=== PATIENT | female | born 1940 | race Caucasian/White ===

== ENCOUNTER 2016-08-27 15:45 | Emergency (ER) | payer MEDICARE, OTHER ==
[2016-08-27] MEDS ORDERED: IBUPROFEN 600 MG TABLET PO ONE (18:19)
[2016-08-27] MEDS ORDERED: LOSARTAN POTASSIUM 50 MG TABLET PO ONE (18:20)
[2016-08-27] MEDS ORDERED: HYDROCHLOROTHIAZIDE 50 MG TABLET PO ONE (18:20)
[2016-08-27] MEDS ORDERED: CLONIDINE HCL 0.2 MG TABLET PO ONE (18:20)
--- NOTE | 2016-08-27 18:55 | ER Document Report ---
ED Fall - General Chief Complaint: Fall Stated Complaint: FALL/FLANK PAIN Time Seen by Provider: 08/27/16 18:03 Notes: The patient is a 76-year-old female, past medical history hypertension, diabetes , presents with left lateral chest wall pain after she tripped over kittens yesterday and landed on her left chest wall. She is not taking anything to help with the pain and has not taken her blood pressure medications today. She denies LOC, numbness, tingling, shortness of breath, fevers, headache, neck pain or ataxia. TRAVEL OUTSIDE OF THE [place] IN LAST 30 DAYS: No - Related data Allergies/Adverse Reactions: No Known Allergies Allergy (Verified 08/27/16 15:52) Past Medical History - General Information source: Patient - Social History Smoking Status: Former Smoker Chew tobacco use (# tins/day): No Frequency of alcohol use: None Drug Abuse: None Family History: Reviewed & Not Pertinent Patient has suicidal ideation: No Patient has homicidal ideation: No - Past Medical History Cardiac Medical History: Reports: Hx Hypertension - EXFORGE, HCTZ, METOPROLOL, CLONIDINE Denies: Hx Coronary Artery Disease, Hx Heart Attack Pulmonary Medical History: Denies: Hx Asthma, Hx Bronchitis, Hx COPD, Hx Pneumonia Neurological Medical History: Denies: Hx Cerebrovascular Accident, Hx Seizures Renal/ Medical History: Denies: Hx Peritoneal Dialysis GI Medical History: Reports: Hx Ulcer - 1968. Denies: Hx Hepatitis, Hx Hiatal Hernia Musculoskeltal Medical History: Reports Hx Arthritis Infectious Medical History: Denies: Hx Hepatitis Past Surgical History: Reports: Hx Genitourinary Surgery - bladder tack, Hx Hysterectomy. Denies: Hx Mastectomy, Hx Open Heart Surgery, Hx Pacemaker - Immunizations Hx Diphtheria, Pertussis, Tetanus Vaccination: No - unk Review of Systems - Review of Systems Notes: REVIEW OF SYSTEMS: CONSTITUTIONAL: -fevers, -chills EENT: -eye pain, -difficulty swallowing, -nasal congestion CARDIOVASCULAR: +chest wall pain, -syncope. RESPIRATORY: -cough, -SOB GASTROINTESTINAL: -abdominal pain, -nausea, -vomiting, -diarrhea GENITOURINARY: -dysuria, -hematuria MUSCULOSKELETAL: -back pain, -neck pain SKIN: -rash or skin lesions. HEMATOLOGIC: -easy bruising or bleeding. LYMPHATIC: -swollen, enlarged glands. NEUROLOGICAL: -altered mental status or loss of consciousness, -headache, - neurologic symptoms PSYCHIATRIC: -anxiety, -depression. ALL OTHER SYSTEMS REVIEWED AND NEGATIVE. Physical Exam - Vital signs Vitals: Temp Pulse Resp BP Pulse Ox 99.1 F 73 18 210/93 H 96 08/27/16 15:52 08/27/16 15:52 08/27/16 15:52 08/27/16 15:52 08/27/16 15:52 - Notes Notes: PHYSICAL EXAMINATION: GENERAL: Well-appearing, well-nourished and in no acute distress. HEAD: Atraumatic, normocephalic. EYES: Pupils equal round and reactive to light, extraocular movements intact, sclera anicteric, conjunctiva are normal. ENT: nares patent, oropharynx clear without exudates. Moist mucous membranes. NECK: Normal range of motion, supple without lymphadenopathy LUNGS: Breath sounds clear to auscultation bilaterally and equal. No wheezes rales or rhonchi. HEART: Tenderness over left lateral chest wall. Regular rate and rhythm without murmurs ABDOMEN: Soft, nontender, normoactive bowel sounds. No guarding, no rebound. No masses appreciated. EXTREMITIES: Normal range of motion, no pitting or edema. No cyanosis. NEUROLOGICAL: Cranial nerves grossly intact. Normal speech, normal gait. Normal sensory and motor exams. PSYCH: Normal mood, normal affect. SKIN: Warm, Dry, normal turgor, no rashes or lesions noted. Course - Re-evaluation Re-evalutation: Patient has no rib fractures or pneumothorax on x-ray. She did not hit her head and has no midline back pain. Will treat her for rib contusions with anti- inflammatories. Patient also provided with a dose of her home blood pressure medication. Suspect her high blood pressure is from rebound hypertension from missing her clonidine dose this morning. He is otherwise asymptomatic at this time. Instructed her to follow-up with her primary care physician for further evaluation and treatment and possible blood pressure medication adjustment. - Vital Signs Vital signs: Temp Pulse Resp BP Pulse Ox 99.1 F 73 16 220/100 H 96 08/27/16 15:52 08/27/16 15:52 08/27/16 18:14 08/27/16 18:09 08/27/16 18:10 - Diagnostic Test Radiology reviewed: Image reviewed, Reports reviewed Radiology results interpreted by me: Rib series: No displaced rib fractures or PTX. Discharge - Discharge Clinical Impression: Contusion of rib on left side Qualifiers: Encounter type: initial encounter Qualified Code(s): S20.212A - Contusion of left front wall of thorax, initial encounter Hypertension Qualifiers: Hypertension type: unspecified secondary hypertension Qualified Code(s): I15.9 - Secondary hypertension, unspecified; I15 - Secondary hypertension Condition: Stable Disposition: HOME, SELF-CARE Additional Instructions: Contusion Your injury has resulted in a contusion -- a crushing of the deep tissues. No injury to important structures was detected during the physician's exam. Contusions vary in the amount of pain they cause, and in the length of time required for healing. Typically, the area will become bruised, and will remain painful to touch for two or three weeks. However, most patients are back to working and playing within a few days. After the initial period of rest and cold-packs, your symptoms (together with the doctor's recommendations) will determine how rapidly you can get back to full activity. Usually this means "do what feels okay, but don't do things that hurt." If re-examination was recommended, it's important to follow up as instructed. Call the doctor or return any time if pain increases, if swelling becomes severe, if you develop numbness or weakness in an injured extremity, or if any other alarming symptoms occur.
--- NOTE | 2016-08-27 19:20 | RADIOLOGY REPORT (SQ) ---
EXAM DESCRIPTION: RIBS LEFT W/PA CHEST COMPLETED DATE/TIME: 08/27/2016 7:05 pm REASON FOR STUDY: left chest wall injury s/p fall COMPARISON: 07/25/2013 TECHNIQUE: Frontal view of the chest and additional views of the left ribs acquired. NUMBER OF VIEWS: 3 LIMITATIONS: None. FINDINGS: FRONTAL CXR: No pneumothorax. No pleural effusion. No atelectasis or infiltrates. Stabl e cardiac silhouette. RIBS: No displaced rib fractures. No lytic or blastic bony lesions. OTHER: No other significant finding. IMPRESSION: NO PNEUMOTHORAX. NO DISPLACED RIB FRACTURES. COMMENT: SITE OF TRAUMA/COMPLAINT MARKED/STAMP COMPLETED: Yes TECHNICAL DOCUMENTATION: JOB ID: [id number] [employer]- All Rights Reserved
[2016-08-27] MEDS ORDERED: ACETAMINOPHEN WITH CODEINE #3 TABLET PO ONE (20:18)
[2016-08-27 20:59] VITALS: BP 112/72
== END 2016-08-27 20:59 | disposition home or self-care (01) ==
LOC: ER 15:45
DX: S20.212A Contusion of left front wall of thorax, initial encounter (principal); I15.9 Secondary hypertension, unspecified; E11.9 Type 2 diabetes mellitus without complications; R07.89 Other chest pain; Z87.891 Personal history of nicotine dependence; X58.XXXA Exposure to other specified factors, initial encounter
CPT/HCPCS: 99284; 71101; A9270 ×4; J3490

== ENCOUNTER 2017-06-07 20:17 | Emergency (ER) | payer MEDICARE, OTHER ==
[2017-06-07 21:27] LABS: HEMATOCRIT 43.5 % (36.0-47.0); HEMOGLOBIN 13.3 g/dL (12.0-15.5); MEAN CORPUSCULAR HEMOGLOBIN 23.6 pg (27.0-33.4); MEAN CORPUSCULAR HGB CONC 30.6 g/dL (32.0-36.0); MEAN CORPUSCULAR VOLUME 77 fl (80-97); RED BLOOD COUNT 5.64 10^6/uL (3.72-5.28); RED CELL DISTRIBUTION WIDTH 21.9 % (11.5-14.0); WHITE BLOOD COUNT 9.5 10^3/uL (4.0-10.5)
--- NOTE | 2017-06-07 21:33 | RADIOLOGY REPORT (SQ) ---
EXAM DESCRIPTION: CT HEAD WITHOUT COMPLETED DATE/TIME: 06/07/2017 9:23 pm REASON FOR STUDY: STROKE ALERT COMPARISON: 12/19/2010. TECHNIQUE: Axial images acquired through the brain without intravenous contrast. Images reviewed wi th bone, brain and subdural windows. Additional sagittal and coronal reconstructions were generated. Images stored on PACS. All CT scanners at this facility use dose modulation, iterative reconstruction, and/or weight based d osing when appropriate to reduce radiation dose to as low as reasonably achievable (ALARA). [facility]: Dose Right [facility]: CareDose [facility]: Dose Right [facility]: Teradose 4D [facility]: Smart [employer] RADIATION DOSE: CT Rad equipment meets quality standard of care and radiation dose reduction techniq ues were employed. CTDIvol: 53.2 mGy. DLP: 858 mGy-cm.mGy. LIMITATIONS: Motion artifact. FINDINGS: VENTRICLES: Prominent. CEREBRUM: No masses. No hemorrhage. No midline shift. Areas of low density in the white matter mos t likely due to chronic micro-vascular ischemic change. No evidence for acute infarction. CEREBELLUM: No masses. No hemorrhage. No alteration of density. No evidence for acute infarction. EXTRAAXIAL SPACES: Age-related involutional change. No fluid collections. No masses. ORBITS AND GLOBE: No intra- or extraconal masses. Normal contour of globe without masses. CALVARIUM: No fracture. PARANASAL SINUSES: No fluid or mucosal thickening. SOFT TISSUES: No mass or hematoma. OTHER: No other significant finding. IMPRESSION: CHRONIC CHANGES OF ATROPHY AND MICROVASCULAR ISCHEMIA. NO ACUTE PROCESS. EVIDENCE OF ACUTE STROKE: NO. COMMENT: Pertinent positive or negative findings of the imaging study reported as a CRITICAL EXAM dionicio LAI MD at21:27 on 06/07/2017. Category of Critical Exam: Stroke protocol. TECHNICAL DOCUMENTATION: JOB ID: [id number] Quality ID # [id number]: Final reports with documentation of one or more dose reduction techniques (e.g., Au tomated exposure control, adjustment of the mA and/or kV according to patient size, use of iterative reconstruction technique) 2010 [employer]- All Rights Reserved Reading location - IP/workstation name: [email or web address]
--- NOTE | 2017-06-07 21:37 | RADIOLOGY REPORT (SQ) ---
EXAM DESCRIPTION: CHEST SINGLE VIEW COMPLETED DATE/TIME: 06/07/2017 9:29 pm REASON FOR STUDY: SOB COMPARISON: 12/19/2010. NUMBER OF VIEWS: One view. TECHNIQUE: Single frontal radiographic view of the chest acquired. LIMITATIONS: None. FINDINGS: LUNGS AND PLEURA: No opacities, masses or pneumothorax. Right pleural effusion. MEDIASTINUM AND HILAR STRUCTURES: No masses. Contour normal. HEART AND VASCULAR STRUCTURES: Heart enlarged without failure. Normal vasculature. BONES: No acute findings. HARDWARE: None in the chest. OTHER: No other significant finding. IMPRESSION: HEART ENLARGED WITHOUT FAILURE. RIGHT PLEURAL EFFUSION. NO OTHER SIGNIFICANT FINDINGS. TECHNICAL DOCUMENTATION: JOB ID: [id number] [employer]- All Rights Reserved Reading location - IP/workstation name: [email or web address]
[2017-06-07 21:39] LABS: ALANINE AMINOTRANSFERASE 137 U/L (9-52); ALBUMIN 3.6 g/dL (3.5-5.0); ALKALINE PHOSPHATASE 101 U/L (38-126); ASPARTATE AMINO TRANSFERASE 227 U/L (14-36); BILIRUBIN,DIRECT 3.6 mg/dL (0.0-0.4); BILIRUBIN,TOTAL 4.6 mg/dL (0.2-1.3); BLOOD UREA NITROGEN 66 mg/dL (7-20); CALCIUM 8.9 mg/dL (8.4-10.2); CREATINE KINASE 404 U/L (30-135); GLUCOSE 107 mg/dL (75-110); POTASSIUM 4.5 mmol/L (3.6-5.0); TOTAL PROTEIN 6.6 g/dL (6.3-8.2)
[2017-06-07] MEDS ORDERED: DEXTROSE 50%-WATER 25 GM/50 ML DISP.SYRIN IV ONE ×2 (21:42→21:45)
[2017-06-07 21:45] LABS: ANION GAP 26 (5-19); CARBON DIOXIDE 18 mmol/L (22-30); CHLORIDE 94 mmol/L (98-107)
[2017-06-07 21:51] LABS: CREATINE KINASE MB 10.9 ng/mL (<4.55)
[2017-06-07 21:55] LABS: TROPONIN I 0.432 ng/mL
[2017-06-07 22:02] LABS: ABSOLUTE LYMPHOCYTES# (MANUAL) 0.3 10^3/uL (0.5-4.7); ABSOLUTE MONOCYTES # (MANUAL) 0.4 10^3/uL (0.1-1.4); ABSOLUTE NEUTROPHILS# (MANUAL) 8.8 10^3/uL (1.7-8.2); BASOPHILS % (MANUAL) 0 % (0-2); EOSINOPHILS % (MANUAL) 0 % (0-6); HOWELL-JOLLY BODIES PRESENT; LYMPHOCYTES % (MANUAL) 3 % (13-45); MONOCYTES % (MANUAL) 4 % (3-13); PLATELET LARGE PRESENT; SEGMENTED NEUTROPHILS % (MAN) 93 % (42-78); TOTAL CELLS COUNTED 100; TOXIC VACUOLATION PRESENT
[2017-06-07 22:03] LABS: PLATELET COMMENT ADEQUATE
[2017-06-07 22:04] LABS: BURR CELLS 2+; OVALOCYTES 3+; POLYCHROMASIA 1+; TARGET CELLS 3+
[2017-06-07 22:06] LABS: ANISOCYTOSIS 3+; POIKILOCYTOSIS 2+
[2017-06-07 22:07] LABS: TEAR DROP CELLS SLIGHT
[2017-06-07 22:08] LABS: SCHISTOCYTES SLIGHT
--- NOTE | 2017-06-07 22:09 | ER Document Report ---
ED General - General Mode of Arrival: Stretcher Information source: Relative, Emergency Med Personnel TRAVEL OUTSIDE OF THE [place] IN LAST 30 DAYS: No - HPI Onset: Just prior to arrival Onset/Duration: Sudden Quality of pain: No pain Severity: None Pain Level: Denies Associated symptoms: denies: Chest pain, Fever, Shortness of breath Exacerbated by: Denies Relieved by: Denies Similar symptoms previously: No Recently seen / treated by doctor: No <GRISEL LAI - Last Filed: 06/08/17 01:51> <DAMIEN MOJICA - Last Filed: 06/08/17 04:11> - General Chief Complaint: S/S of Possible Stroke Stated Complaint: Altered Mental Status Time Seen by Provider: 06/07/17 20:54 Notes: The initial report was given by EMS: 77`-year-old female with a history of CVA ( 2009), [id number] diabetes, hypertension, dyslipidemia brought in because of an altered mental status. The initial timeline for the mental status change was earlier this morning. However, patient's family did come into the emergency room and provided a significant difference in history. As per the patient's son: The patient was usual state of health. She has been prepping for a colonoscopy since Thursday (for colonoscopy tomorrow) but still taking her medicines. Her baseline mental status as she walks and talks. They state patient went into her bedroom at approximately 5:30 PM today and they heard her fall. They went into the room and found the patient markedly altered. She was unable to understand things and unable to speak. EMS found the patient with a heart rate of 130-140 and irregular consistent with atrial fibrillation. The son states that the patient does not have any known history of atrial fibrillation. 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 Medications: Clonidine 0.2 mg Plavix 75 mg Hydrochlorothiazide Janumet 50/500 mg Losartan 100 mg Simvastatin 40 mg Primary CARE physician: Dr Pascal ([facility]) (GRISEL LAI) - Related Data Allergies/Adverse Reactions: No Known Allergies Allergy (Verified 08/27/16 15:52) Past Medical History - General Information source: Patient - Social History Smoking Status: Never Smoker Cigarette use (# per day): No Chew tobacco use (# tins/day): No Frequency of alcohol use: None Drug Abuse: None Lives with: Family Family History: Reviewed & Not Pertinent Patient has suicidal ideation: No Patient has homicidal ideation: No - Past Medical History Cardiac Medical History: Reports: Hx Hypertension - EXFORGE, HCTZ, METOPROLOL, CLONIDINE Denies: Hx Coronary Artery Disease, Hx Heart Attack Pulmonary Medical History: Denies: Hx Asthma, Hx Bronchitis, Hx COPD, Hx Pneumonia Neurological Medical History: Denies: Hx Cerebrovascular Accident, Hx Seizures Renal/ Medical History: Denies: Hx Peritoneal Dialysis GI Medical History: Reports: Hx Ulcer - 1969. Denies: Hx Hepatitis, Hx Hiatal Hernia Musculoskeltal Medical History: Reports Hx Arthritis Infectious Medical History: Denies: Hx Hepatitis Past Surgical History: Reports: Hx Genitourinary Surgery - bladder tack, Hx Hysterectomy. Denies: Hx Mastectomy, Hx Open Heart Surgery, Hx Pacemaker - Immunizations Hx Diphtheria, Pertussis, Tetanus Vaccination: No - unk <RONNADEBGRISEL - Last Filed: 06/08/17 01:51> Review of Systems - Review of Systems Constitutional: denies: Chills, Fever EENT: No symptoms reported Cardiovascular: See HPI Respiratory: No symptoms reported Gastrointestinal: No symptoms reported Genitourinary: No symptoms reported Female Genitourinary: No symptoms reported Musculoskeletal: No symptoms reported Skin: No symptoms reported Hematologic/Lymphatic: No symptoms reported Neurological/Psychological: See HPI <RONNADEBGRISEL - Last Filed: 06/08/17 01:51> Physical Exam <RONNADEBGRISEL - Last Filed: 06/08/17 01:51> <DAMIEN MOJICA - Last Filed: 06/08/17 04:11> - Vital signs Vitals: Resp 20 06/07/17 20:47 Notes: Physical exam: GENERAL: 77-year-old female, she is alert and responsive, she is nonverbal and appears to have both an expressive and receptive aphasia. HEAD: Atraumatic, normocephalic. EYES: Pupils equal round and reactive to light, extraocular movements intact, sclera anicteric, conjunctiva are normal. ENT: TMs normal, nares patent, oropharynx clear without exudates. Dry mucous membranes. NECK: Normal range of motion, supple without obvious mass or JVD. LUNGS: Breath sounds clear to auscultation bilaterally and equal. No wheezes rales or rhonchi. HEART: Tachycardia, and irregular. ABDOMEN: Soft, normoactive bowel sounds. No tenderness to palpation. No guarding, no rebound. No masses appreciated. EXTREMITIES: Normal range of motion, no pitting or edema. No clubbing or cyanosis. NEUROLOGICAL: Her exam is limited significantly by an expressive and receptive aphasia. She does not appear to have any lateralizing signs of weakness. She is unable to complete the NIH scale. PSYCH: Normal mood, normal affect. SKIN: Warm, Dry, normal turgor, no rashes or lesions noted. (GRISEL LAI) Course - Laboratory Result Diagrams: 06/07/17 21:00 06/07/17 21:00 - Diagnostic Test Radiology reviewed: Image reviewed, Reports reviewed - CT shows no acute stroke. Chest x-ray shows a small right pleural effusion, cardiomegaly without evidence of failure. - EKG Interpretation by [facility]: A.Fib - EKG shows atrial fibrillation with a ventricular rate of 137, nonspecific ST changes <GRISEL LAI - Last Filed: 06/08/17 01:51> - Laboratory Result Diagrams: 06/07/17 21:00 06/07/17 21:00 <DAMIEN MOJICA - Last Filed: 06/08/17 04:11> - Re-evaluation Re-evalutation: 06/07/17 23:50 Note: Patient's blood pressure was low (75/50). Additionally, her Accu-Chek was 35. She was given 2 A of D50 and given 2 L of normal saline. The blood pressure has improved significantly. A Cartwright was placed and the urine is tea colored and she has made little urine thus far. I think most likely, she is still fluid down, but given her history and her age, the fluid will be given cautiously. 06/07/17 23:53 Repeat Accu-Chek half an hour after the D50 is 117. Will continue to follow. 06/08/17 00:50 Interventions in the ER: D50 2 for glucose of 35 IV fluids (2 L) bolus Cartwright placement IV maintenance fluids: 200 cc an hour IV Cardizem drip: Currently at [address] head, abdomen, pelvis 06/08/17 01:35 I had multiple discussions with Dr. Call (hospitalist). He has requested we try and transfer the patient due to lack of backup services (specifically cardiology, nephrology and neurology). I have discussed the case with Dr. Ballard who is the hospitalist at [facility] and is graciously accepted the patient. The plan for the time being is to follow the patient sugars, continue IV fluid hydration, continue IV diltiazem for rate control. Since urine output is still low (urine still dark). 06/08/17 01:38 06/08/17 01:46 Current vital signs: Blood pressure 111/71, pulse 115-120, respiratory rate 20 with an O2 sat of 97% on 2 L. The patient is alert. She seems to have some improvement in her understanding. I have discussed plan for transfer with the patient's son and daughter and they are agreeable. (GRISEL LAI) 06/08/17 04:10 I reevaluated the patient. Transport team is here to transport the patient. She still has expressive aphasia. She is moving her hands and arms without difficulty. She is in no distress. Vital signs are stable with just very mild tachycardia. Blood pressure is stable at 111/81. Patient is stable for transport. (DAMIEN MOJICA) - Vital Signs Vital signs: Temp Pulse Resp BP Pulse Ox 97.1 F 102 H 18 92/70 L 99 06/08/17 00:00 06/08/17 03:00 06/08/17 03:00 06/08/17 03:00 06/08/17 03:00 - Laboratory Laboratory results interpreted by me: 06/07/17 06/07/17 06/07/17 21:00 21:00 21:00 RBC 5.64 H MCV 77 L MCH 23.6 L MCHC 30.6 L RDW 21.9 H Plt Count 102 L Seg Neuts % (Manual) 93 H Lymphocytes % (Manual) 3 L Abs Neuts (Manual) 8.8 H Abs Lymphs (Manual) 0.3 L Chloride 94 L Carbon Dioxide 18 L Anion Gap 26 H BUN 66 H Creatinine 3.69 H Est GFR ( Amer) 14 L Est GFR (Non-Af Amer) 12 L POC Glucose Total Bilirubin 4.6 H Direct Bilirubin 3.6 H AST 227 H ALT 137 H Creatine Kinase 404 H CK-MB (CK-2) 10.90 H Urine Protein Urine Glucose (UA) Urine Blood Urine Bilirubin Urine Urobilinogen 06/07/17 06/07/17 06/08/17 22:33 23:00 02:33 RBC MCV MCH MCHC RDW Plt Count Seg Neuts % (Manual) Lymphocytes % (Manual) Abs Neuts (Manual) Abs Lymphs (Manual) Chloride Carbon Dioxide Anion Gap BUN Creatinine Est GFR ( Amer) Est GFR (Non-Af Amer) POC Glucose 117 H 179 H Total Bilirubin Direct Bilirubin AST ALT Creatine Kinase CK-MB (CK-2) Urine Protein >=500 H Urine Glucose (UA) 50 H Urine Blood SMALL H Urine Bilirubin MODERATE H Urine Urobilinogen 8.0 H Critical Care Note - Critical Care Note Total time excluding time spent on procedures (mins): 90 <GRISEL LAI - Last Filed: 06/08/17 01:51> Discharge <GRISEL LAI - Last Filed: 06/08/17 01:51> <DAMIEN MOJICA - Last Filed: 06/08/17 04:11> - Discharge Clinical Impression: Acute renal failure, Atrial fibrillation with a rapid ventric, Encephalopathy, Non-STEMI Condition: Serious Disposition: [facility] Referrals: MARTHA NEGRO MD [Primary Care Provider] - Follow up as needed
[2017-06-07 22:10] LABS: PLATELET COUNT 102 10^3/uL (150-450)
[2017-06-07] MEDS ORDERED: DILTIAZEM HCL/D5W 125 MG/125 ML RTUINJ IV PRN (23:44)
[2017-06-07] MEDS ORDERED: RINGERS SOLUTION,LACTATED 1,000 ML IV PRN (23:52)
--- NOTE | 2017-06-08 00:07 | RADIOLOGY REPORT (SQ) ---
EXAM DESCRIPTION: CT ABD/PELVIS NO ORAL OR IV CLINICAL HISTORY: 77 years Female, RENAL FAILURE COMPARISON: None. TECHNIQUE: No contrast. Coronal and sagittal reformat. This exam was performed according to our departmental dose-optimization program, which includes automated exposure control, adjustment of the mA and/or kV according to patient size and/or use of iterative reconstruction technique. Limitation: Arm position. No contrast. FINDINGS: Moderate right pleural effusion. Small ascites includes fluid under the left hemidiaphragm. Moderate nonspecific gaseous gastric distention. Moderate anasarca. Minimal pericardial fluid. Calcification associated with the mitral valve. Moderate coronary arterial calcification stenting. Colonic diverticulosis. Cartwright catheter bulb. Grade 1 L4 anterolisthesis. Vacuum disc desiccation. Small spleen. Mild replacement of the pancreas. Unenhanced inferior chest, abdominopelvic structures, and musculoskeleton appear otherwise grossly unremarkable. Impression: Moderate right pleural effusion, small ascites, and moderate anasarca suggest fluid overload. Limitation.
[2017-06-08 00:19] LABS: AMORPHOUS SEDIMENT,URINE TRACE /HPF
[2017-06-08 00:44] LABS: APPEARANCE,URINE CLOUDY; COLOR,URINE AMBER; GLUCOSE, URINE 50 mg/dL (NEGATIVE)
[2017-06-08 00:45] LABS: BILIRUBIN,URINE MODERATE (NEGATIVE); KETONES,URINE NEGATIVE (NEGATIVE); LEUKOCYTE ESTERASE,URINE NEGATIVE (NEGATIVE); NITRITE,URINE NEGATIVE (NEGATIVE); PROTEIN,URINE >=500 mg/dL (NEGATIVE)
[2017-06-08 04:41] VITALS: BP 110/84
--- NOTE | 2017-06-08 05:12 | EKG REPORT ---
SEVERITY:- ABNORMAL ECG - ATRIAL FIBRILLATION, V-RATE 75-172 LEFT ANTERIOR FASCICULAR BLOCK CONSIDER ANTEROSEPTAL INFARCT REPOLARIZATION ABNORMALITY, PROB RATE RELATED : Confirmed by: Gilles Gibbs MD 08-Jun-2017 05:11:59
== END 2017-06-08 04:47 | disposition short-term general hospital (02) ==
LOC: ER 20:17
DX: N17.9 Acute kidney failure, unspecified (principal); I48.91 Unspecified atrial fibrillation; I21.4 Non-ST elevation (NSTEMI) myocardial infarction; G93.40 Encephalopathy, unspecified; R41.82 Altered mental status, unspecified; I10 Essential (primary) hypertension; E11.9 Type 2 diabetes mellitus without complications; Z86.73 Personal history of transient ischemic attack (TIA), and cerebral infarction without residual deficits; Z90.710 Acquired absence of both cervix and uterus; Z79.02 Long term (current) use of antithrombotics/antiplatelets
CPT/HCPCS: 93005; 99291; 99292; 96375; 96365; 96366; 96368; 36415; 82553; 82962; 82550; 85025; 80053; 81001; 84484; 71045; 70450; 74176; 93010; J3490 ×2; J7120